=== PATIENT | female | born 1945 | race Caucasian/White ===

== ENCOUNTER → 2018-02-16 | Outpatient (CLI) | payer MEDICARE, OTHER ==
[~2018-02-16] MED LIST: AMLO5TAB2 PO; ASPI-621 PO; ESOM40CA PO; LEVO100T PO; MULT-6 PO; SOLI5TAB2 PO
== END | disposition home or self-care (01) ==
LOC: CVU 13:53 → MERGE 14:00
PROVIDERS: ATTEND Internal Medicine Cardiovascular Disease
DX: I08.3 Combined rheumatic disorders of mitral, aortic and tricuspid valves (principal); I26.09 Other pulmonary embolism with acute cor pulmonale
CPT/HCPCS: 93306